=== PATIENT | male | born 1980 | race Caucasian/White ===

== ENCOUNTER 2016-08-20 19:36 | Emergency (ER) | payer SELFPAY ==
--- NOTE | 2016-08-31 13:16 | ER ---
ADMIT: 08/20/2016 RM/LOC: ER [facility] MR#: [id number] [address] [id number] [facility] [address] [place] [address] Emergency Room Report SEX: M AGE: 36 : 1980 DATE: 08/20/2016 A 36-year-old, brought over from the nursing home. He apparently had been picking a pimple on the inside of his nose and has developed erythema on the nose and below the left eye. See T-sheet for remainder of history and physical. The patient was given 2 g of Rocephin IM. Discharged Bactrim 2 p.o. b.i.d. for the next 14 days and follow up with his primary doctor. DIAGNOSIS: Periorbital cellulitis. Bernard Desai MD/ sumanth JOB #: [id number] CC: Eduard Medina MD, Attending Physician Marcin Valencia MD, Family Physician
== END 2016-08-20 20:55 ==
LOC: ER 19:36
DX: L03.213 Periorbital cellulitis (principal); F17.200 Nicotine dependence, unspecified, uncomplicated